=== PATIENT | female | born 1995 | race Two or more races ===

== ENCOUNTER 2024-12-21 15:47 | Outpatient (AMB) | payer OTHER, SELFPAY ==
--- NOTE | 2024-12-21 15:57 | MHC.PC.OV ---
Vital Signs 12/21/24 16:02 Height 5 ft 4 in Weight 155 lb 2 oz BMI 26.6 BP 110/64 Blood Pressure Location Rt brachial Position Sitting Respiration 16 Pulse 90 Pulse Source Pulse Oximeter Temp 98.6 F Temp Source Temporal Artery Scan Pulse Oximetry (%) 98 Oxygen Delivery Method Room Air Intake Visit Reasons: breathing/muscular pain Intake Note: Livia presents in the office today to establish care. Allergies No Known Allergies Allergy (Verified 12/21/24 15:59) Tobacco use date assessed: 12/21/24 Dental Screening Dental Screen Date: 12/21/24 Did you have a dental visit in the last 12 months?: No Did you have a dental problem in the last 6 months where you did not have access to dental care?: No Was dental information given to patient?: Patient declined HPI HPI Comments History of Present Illness Details This is a 29 year old female here to establish care. She is due for a CPE. Eye and dental exams recommended. She goes to [facility] for [facility] care. She has a ten year old daugher. Patient says she had 1 abnormal PAP so she had this repeated after 6 momths and it was normal. Reports tetanus vaccine is UTD. She has nexplanon. She has a small, painless lump on the left upper eyelid x 1 year. Does not interfere with vision. She was seen at [facility] on 10/23/24 for right mid back pain. This since resolved, but she had labs and lymphocyte count was low. Endorses mild odor of urine. ROS: Constitutional: No unexplained weight loss, fever, chills, fatigue or night sweats. Eyes: No vision changes, blurry vision, double vision, eye pain, eye redness, eye discharge. ENT: No hearing loss, sneezing, congestion, runny nose or sore throat. Respiratory: No shortness of breath, cough or sputum production. Cardiovascular: No chest pain, chest pressure or chest discomfort. No palpitations or pedal edema. Gastrointestinal: No anorexia, nausea, vomiting or diarrhea. No abdominal pain or blood in stool. Genitourinary: No dysuria, hematuria, urinary frequency. Neurologic: No headache, dizziness, syncope, unilateral weakness, ataxia, numbness or tingling in the extremities. Musculoskeletal: No muscle pain, back pain, joint pain or swelling. Hematologic/Lymphatics: No bleeding or bruising. No painful lymph nodes. Skin: No rash Endocrine: No cold or heat intolerance. No polyuria or polydipsia. Psychiatric: No depression or anxiety. No SI/HI. Physical exam: Constitutional: Alert, in no distress. Head: Normocephalic. Eyes: Pupils are equal, round and reactive to light. Extraocular muscles intact. Small, nontender lump on the left outer upper lid. Ear, Nose and Throat: Canals clear. TMs normal. Normal nasal mucosa. No nasal discharge. No oral lesions. Neck: Supple, Full range of motion. No lymphadenopathy. No palpable thyroid masses. Respiratory: Clear to auscultation. Cardiovascular: S1 S2 regular. No murmurs. Gastrointestinal: Abdomen soft, non-tender, non-distended. Normal bowel sounds. No palpable masses. Genitourinary: No costovertebral angle tenderness. Neurologic: No focal neurological deficits. Symmetric patellar reflexes. Moves all extremities spontaneously. Skin: No rashes Musculoskeletal: No gross deformities. Normal range of motion. Extremities: Warm and well perfused. No clubbing, cyanosis or edema. Intact peripheral pulses bilaterally. Psychiatric: Normal mood and affect [facility] Medical History (Updated 12/21/24 @ 22:34 by ZENA Hamilton) Abnormal urine odor Chalazion left upper eyelid Lymphocytes decreased Routine physical examination Family history of renal disease Screening for cardiovascular condition Surgical History (Updated 12/21/24 @ 16:10 by Laura Boyd CMA) History of repair of ACL Family History (Updated 12/21/24 @ 16:10 by Laura Boyd CMA) Father Hypertension Maternal Grandmother Hypertension Hyperlipidemia Diabetes Leukemia Paternal Grandmother Hypertension Hyperlipidemia Diabetes Cervical cancer Maternal Grandfather History of thyroid disorder Thyroid cancer Social History (Updated 12/21/24 @ 16:02 by Laura Boyd CMA) Housing: Condominium Alcohol intake: never Patient Tobacco Use Status: Former Tobacco user Tobacco use type: Smokeless Tobacco e-Cigarette/Vaping Use: Currently Using Second Hand Smoke Exposure: No service: No Current occupational status: employed Current occupation: Medical Assitant and [employer] Current occupational exposures/hazards: No Cognitive needs: No Hearing needs: Yes Vision needs: Yes Questionnaire PHQ-9 Over the last 2 weeks, how often have you been bothered by any of the following problems? 1. Little interest or pleasure in doing things: not at all 2. Feeling down, depressed, or hopeless: not at all 3. Trouble falling or staying asleep, or sleeping too much: not at all 4. Feeling tired or having little energy: not at all 5. Poor appetite or overeating: not at all 6. Feeling bad about yourself - or that you are a failure or have let yourself or your family down: not at all 7. Trouble concentrating on things, such as reading the newspaper or watching television: not at all 8. Moving or speaking so slowly that other people could have noticed. Or the opposite - being so fidgety or restless that you have been moving around a lot more than usual: not at all 9. Thoughts that you would be better off or of hurting yourself in some way: not at all Total score: 0 Depression Screening Interpretation: Negative Depression Screening Done: Yes 73187 - PHQ-9 Billing: Yes Source: Developed by Drs. Raz Taylor, Cindy Samaniego, Mc Bush and colleagues, with an educational ashley from [employer]. Thrive Questionnaire Date Thrive assessed: 12/21/24 I am a: Patient What is your living situation today?: I have a steady place to live Within the past 12 months, did the food you bought not last and you didn't have the money to get more?: Never true Within the past 12 months, did you worry whether your food would run out before you got money to buy more?: Sometimes True Do you have trouble paying for medicines?: No Do you have trouble getting transportation to medical appointments?: No Do you have trouble paying your heating and electricity bill?: Yes Do you have trouble taking care of your child, family member or friend?: No Do you have trouble with day-to-day activities such as bathing, preparing meals, shopping, managing finances, etc.?: No Are you currently unemployed and looking for a job?: No Are you interested in more education?: Yes Please select the resources that you would like help with: Food, Utilities and Education Currently or been in a relationship where the following occur: I choose not to answer THRIVE Score: 2 AUDIT C Alcohol Use Questionnaire (AUDIT-C) 1. How often do you have a drink containing alcohol?: Never 3. How often do you have six or more drinks on one occasion?: Never Total Score: 0 EDNA-7 AMB Questionnaire EDNA-7 Date EDNA - 7 assessed: 12/21/24 Feeling nervous, anxious, or on edge: 1 = Several days Not being able to stop or control worryin = Not at all Worrying too much about different things: 0 = Not at all Trouble relaxin = Not at all Being so restless that it is hard to sit still: 0 = Not at all Becoming easily annoyed or irritable: 0 = Not at all Feeling afraid as if something awful might happen: 0 = Not at all Total EDNA-7 score (0-4 normal; 5-9 mild; 10-14 moderate; 15-21 severe): 1 Source: Developed by Drs. Rza Taylor, Cindy Samaniego, Mc Bush and colleagues, with an educational ashley from [employer]. EDNA-7 Assessment Billing EDNA-7 Assessment Tool: EDNA-7 Assessment 50537 Physical exam (Primary Care) Vital Signs: Last Vital Signs Temp 98.6 F 12/21/24 16:02 Pulse 90 12/21/24 16:02 Resp 16 12/21/24 16:02 BP 110/64 12/21/24 16:02 Pulse Ox 98 12/21/24 16:02 Oxygen Delivery Method Room Air 12/21/24 16:02 BMI result Body Mass Index 26.6 Tobacco/Smoking Status: Tobacco use Status Tobacco use date assessed 12/21/24 12/21/24 16:06 Patient Tobacco Use Status Former Tobacco user 12/21/24 16:06 Tobacco use type Smokeless Tobacco 12/21/24 16:06 e-Cigarette/Vaping Use Currently Using 12/21/24 16:06 PHQ-9: PHQ-9 Score PHQ-9: Total score 0 12/21/24 16:42 Depression Screening Interpretation: Negative Thrive Assessment: Date of Thrive Assessment Date Thrive assessed 12/21/24 12/21/24 15:59 Currently or been in a relationship where the following occur: I choose not to answer Results AMB Urinalysis Dipstick UR Leukocytes Negative Last Edit by aLura Boyd CMA on 12/21/24 16:45 UR Nitrite Negative Last Edit by Laura Boyd CMA on 12/21/24 16:45 UR Urobilinogen Normal Last Edit by Laura Boyd CMA on 12/21/24 16:45 UR Protein Negative Last Edit by Laura Boyd CMA on 12/21/24 16:45 UR Ph 6.0 Last Edit by Laura Boyd CMA on 12/21/24 16:45 UR Blood Trace Last Edit by Laura Boyd CMA on 12/21/24 16:45 UR Specific Russell 1.015 Last Edit by Laura Boyd CMA on 12/21/24 16:45 UR Ketone Negative Last Edit by Laura Boyd CMA on 12/21/24 16:45 UR Bilirubin Negative Last Edit by Laura Boyd CMA on 12/21/24 16:45 UR Glucose Negative Last Edit by Laura Boyd CMA on 12/21/24 16:45 Results Reviewed Results Reviewed: Laboratory Last Values Urine pH (Clinic) 6.0 12/21/24 16:42 Specific Russell (Clinic) 1.015 12/21/24 16:42 Ur Protein (Clinic) Negative 12/21/24 16:42 Ur Ketones (Clinic) Negative 12/21/24 16:42 Urine Blood (Clinic) Trace 12/21/24 16:42 Urine Nitrite Negative 12/21/24 16:42 Urine Bilirubin (Clinic) Negative 12/21/24 16:42 Urobilinogen (Clinic) Normal 12/21/24 16:42 Leukocyte Esterase (Clinic) Negative 12/21/24 16:42 Urine Glucose (Clinic) Negative 12/21/24 16:42 Coding Level of Care Code New Pt Level 3 (11102) New Pt Prev Care 18-39yr(27617 Diagnoses Routine physical examination Z00.00 Screening for cardiovascular condition Z13.6 Lymphocytes decreased D72.810 Chalazion left upper eyelid H00.14 Abnormal urine odor R82.90 Additional Codes EDNA-7 Assessment Billing - EDNA-7 Assessment Tool: EDNA-7 Assessment 00553 ([id number]) PHQ-9 - 79202 - PHQ-9 Billing: Yes ([id number]) Assessment & Plan Assessment & Plan (1) Routine physical examination: Code(s): Z00.00 - Encounter for general adult medical examination without abnormal findings Category: Medical Plan: Patient is seen today for a routine physical. As part of this visit we reviewed the following issues, which are considered and essential part of preventative health in this age group: - Annual Mechanical Maintenance exam - Blood pressure screening - Cholesterol screening - Osteoporosis prevention including calcium/vitamin D intake, weight bearing exercise & smoking cessation - Nutritional and exercise counseling - Counseling of injury prevention including fire prevention, smoke alarms and seat belt usage - Education about skin cancer - Recommendations about immunizations - Recommendation of an eye exam - Screening for substance abuse (2) Screening for cardiovascular condition: Code(s): Z13.6 - Encounter for screening for cardiovascular disorders Category: Medical (3) Lymphocytes decreased: Code(s): D72.810 - Lymphocytopenia Category: Medical Plan: Check labs. (4) Chalazion left upper eyelid: Code(s): H00.14 - Chalazion left upper eyelid Category: Medical Plan: Refer to ophthalmology (5) Abnormal urine odor: Code(s): R82.90 - Unspecified abnormal findings in urine Category: Medical Plan: UA and culture ordered. Plan Schedule CPE in 1 year. Orders: Orders Lipid Panel Today Z00.00 - Encounter for general adult medical examination without abnormal findings, Z13.6 - Encounter for screening for cardiovascular disorders, Z84.1 - Family history of disorders of kidney and ureter Comprehensive Met. Panel Today Z00.00 - Encounter for general adult medical examination without abnormal findings, Z13.6 - Encounter for screening for cardiovascular disorders, Z84.1 - Family history of disorders of kidney and ureter Vitamin D 25-OH (D2 and D3) Today Z00.00 - Encounter for general adult medical examination without abnormal findings, Z13.6 - Encounter for screening for cardiovascular disorders, Z84.1 - Family history of disorders of kidney and ureter UA w Microscopic Today R39.9 - Unspecified symptoms and signs involving the genitourinary system, Z00.00 - Encounter for general adult medical examination without abnormal findings, Z13.6 - Encounter for screening for cardiovascular disorders, Z84.1 - Family history of disorders of kidney and ureter Urine Culture Today R39.9 - Unspecified symptoms and signs involving the genitourinary system, Z00.00 - Encounter for general adult medical examination without abnormal findings, Z13.6 - Encounter for screening for cardiovascular disorders, Z84.1 - Family history of disorders of kidney and ureter AMB Urinalysis Dipstick Today Z13.9 - Encounter for screening, unspecified Ferritin Today D64.9 - Anemia, unspecified Complete Blood Count Auto Diff Today Z00.00 - Encounter for general adult medical examination without abnormal findings, Z13.6 - Encounter for screening for cardiovascular disorders, Z84.1 - Family history of disorders of kidney and ureter TSH reflex Free T4 Today Z00.00 - Encounter for general adult medical examination without abnormal findings, Z13.6 - Encounter for screening for cardiovascular disorders, Z84.1 - Family history of disorders of kidney and ureter Vitamin B12 Today Z00.00 - Encounter for general adult medical examination without abnormal findings, Z13.6 - Encounter for screening for cardiovascular disorders, Z84.1 - Family history of disorders of kidney and ureter, Z91.89 - Other specified personal risk factors, not elsewhere classified IRON PROFILE Today D64.9 - Anemia, unspecified Pathologist Review - CBC Today D72.810 - Lymphocytopenia Referrals Ophthalmology Referral H00.14 - Chalazion left upper eyelid
[2024-12-21 16:02] VITALS: BP 110/64; PULSE 90; RESP 16; TEMP 37; O2SAT 98; BMI 26.6
--- OUTSIDE RECORDS SUMMARY | 2024-12-21 18:38 | XMS_ITS | Clinical Summary ---
Author Organization [facility] Address [address] [place] [address] Care Team Providers Care Wildlife Refuge Manager Name Role Phone Unavailable Primary Care Provider Unavailabl e Source Comments PLEASE NOTE, if this patient is a minor, it may be UNLAWFUL to discuss sensitive information that is contained in these records (such as FAMILY PLANNING, MENTAL HEALTH or SUBSTANCE ABUSE) with the minor patient's parent or other person without the patient's specific authorization.[facility] Allergies No known active allergies Medications busPIRone (BUSPAR) 15 mg tabletIndication s:Anxiety Take 1 Tab by mouth every 8 (eight) hours as needed for other reason (anxiety) 30 Tab 1 08/07/2019 Active Active Problems Problem Noted Date Diagnosed Date Hx of rheumatic fever Hx of knee surgery, bilateral Family History Medical History Relation Name Comments No Known Problems Father No Known Problems Mother Relation Name Status Comments Father Alive Mother Alive Social History Tobacco Use Types Packs/Day Years Used Date Smoking Tobacco: Former Cigarettes 0.3 5 0 07/06/2014 - 07/07/2019 Smokeless Tobacco: Former Alcohol Use Standard Drinks/Week Comments Yes 0 (1 standard drink = 0.6 oz pur e alcohol) Social Connections Answer Date Recorded Connectedness 0 10/30/2023 Financial Resource Strain Answer Date R ecorded Financial Resource Strain 0 2023 Stress Answer Date Recorded Stress 0 09/07/2023 Physical Activity Answer Date Recorded Physical Activity 0 09/07/2023 Food Insecurity Answer Date Recorded Food 0 11/04/2023 Transportation Needs Answer Date Record ed Transportation 0 09/07/2023 Housing Stability Answer Date Recorded Housing 0 09/07/2023 Safety and Environment Answer Date Simone rded Safety 0 09/07/2023 Utilities Answer Date Recorded Utilities 0 09/07/2023 Employment Answer Date Recorded Stress 0 10/30/2023 Comments Unknown Sex and Gender Information Value Date Recorded Sex Assigned at Not on file Legal Sex Female 10:05 AM PST Gender Identity Not on file Sexual Orientation Not on file Plan of Treatment Not on file Insurance [place] [facility] [id number]
== END 2024-12-21 16:40 | disposition home or self-care (01) ==
LOC: HO.HMCFM 15:48
PROVIDERS: PCP Physician Assistant Medical; Visit Provider Physician Assistant Medical
DX: Z00.00 Encounter for general adult medical examination without abnormal findings (principal); D72.810 Lymphocytopenia; H00.14 Chalazion left upper eyelid; R82.90 Unspecified abnormal findings in urine; Z13.6 Encounter for screening for cardiovascular disorders; Z84.19 Family history of other disorders of kidney and ureter

== ENCOUNTER → 2024-12-21 15:47 | Outpatient (BNVA) | payer OTHER, SELFPAY | PROVIDERS: PCP Physician Assistant Medical; Visit Provider Physician Assistant Medical | DX: Z00.00 Encounter for general adult medical examination without abnormal findings (principal); Z76.89 Persons encountering health services in other specified circumstances; D72.810 Lymphocytopenia; H00.14 Chalazion left upper eyelid; R82.90 Unspecified abnormal findings in urine; Z84.19 Family history of other disorders of kidney and ureter; Z13.31 Encounter for screening for depression; Z13.39 Encounter for screening examination for other mental health and behavioral disorders | CPT/HCPCS: 81002; 96127 ==

== ENCOUNTER 2024-12-22 11:44 | Outpatient (REF) | payer OTHER, SELFPAY ==
[2024-12-22 12:54] LABS: Appearance Urine Clear; Glucose Urine UA Negative (Negative); PH 6.5 (5.0-9.0); Specific Gravity - Urine 1.015 (1.005-1.025)
--- OUTSIDE RECORDS SUMMARY | 2024-12-22 17:54 | XMS_ITS | Clinical Summary ---
Author Organization [facility] Address [address] [place] [address] Care Team Providers Care Plush Dresser Name Role Phone Unavailable Primary Care Provider [...] Not on file [place] [facility] [id number]
== END 2024-12-22 11:45 | disposition home or self-care (01) ==
LOC: HO.LNP 11:44
PROVIDERS: Visit Provider Physician Assistant Medical
DX: Z00.00 Encounter for general adult medical examination without abnormal findings (principal); Z13.6 Encounter for screening for cardiovascular disorders; R39.9 Unspecified symptoms and signs involving the genitourinary system; Z84.19 Family history of other disorders of kidney and ureter
CPT/HCPCS: 81001; 87086

== ENCOUNTER 2025-01-03 14:00 | Outpatient (REF) | payer OTHER, SELFPAY ==
[2025-01-03 18:10] LABS: MANUAL DIFF FLAG NO
[2025-01-03 18:15] LABS: Hematocrit 37.8 % (37.0-47.0); Hemoglobin 12.9 g/dl (12.0-16.0); Imm Gran Abs Auto 0.02 X10*3/uL (0.00-0.03); Imm Gran Pct Auto 0.3 % (0.0-0.4); Lymphocytes Absolute Auto 2.4 X10*3/uL (1.2-4.9); Mean Corpuscular HGB Conc 34.1 g/dl (31.0-35.0); Mean Corpuscular Hemoglobin 30.7 pg (27.0-33.0); Mean Corpuscular Volume 90.0 fL (80.0-98.0); NRBC Abs Auto 0.000 X10*3/uL (0.0-0.012); NRBC Pct Auto 0.0 /100WBC (0.0-0.2); Platelet Count 234 X10*3/uL (160-400); Red Blood Count 4.20 X10*6/uL (4.20-5.50); White Blood Count 7.0 X10*3/uL (4.8-10.8)
[2025-01-03 18:37] LABS: Alanine Aminotransferase 10 U/L (0-31); Albumin Level 4.6 g/dL (3.5-5.0); Alkaline Phosphatase 48 U/L (39-117); Anion Gap 11 (12-20); Aspartate Amino Transferase 22 U/L (5-31); Blood Urea Nitrogen 15 mg/dL (9-16); Calcium 9.0 mg/dL (8.4-10.2); Carbon Dioxide 26 mmol/L (22-29); Chloride 105 mmol/L (96-108); Cholesterol 177 mg/dL (<200); Estimated Glomerular Filt Rate > 60; HDL Cholesterol 61 mg/dL (>40); Iron 207 mcg/dL (30-160); Percent Iron Saturation 70 % (15-50); Potassium 3.7 mmol/L (3.3-5.1); Sodium 138 mmol/L (135-145); Total Iron Binding Capacity 296 mcg/dL (228-428); Total Protein 7.1 g/dL (6.5-8.0); Triglycerides 69 mg/dL (<150); Unsaturated Iron Binding 89 ug/dL
[2025-01-03 18:53] LABS: Vitamin B12 378 pg/mL (200-900)
[2025-01-03 18:58] LABS: Ferritin 56 ng/mL (10-122)
[2025-01-09 14:18] LABS: Vitamin D 25-OH, D2 <4 ng/mL; Vitamin D 25-OH, D3 25 ng/mL; Vitamin D 25-OH, Total 25 ng/mL (30-100)
== END 2025-01-03 14:01 | disposition home or self-care (01) ==
LOC: HO.WFDLDS 14:00
PROVIDERS: Visit Provider Physician Assistant Medical
DX: Z00.00 Encounter for general adult medical examination without abnormal findings (principal); Z13.6 Encounter for screening for cardiovascular disorders; Z13.21 Encounter for screening for nutritional disorder; D72.810 Lymphocytopenia; D64.9 Anemia, unspecified; Z91.89 Other specified personal risk factors, not elsewhere classified; Z84.19 Family history of other disorders of kidney and ureter
CPT/HCPCS: 80053; 80061; 82306; 82607; 82728; 83540; 84443; 85025